=== PATIENT | male | born 1960 | race Caucasian/White ===

== ENCOUNTER 2022-03-20 11:30 | Emergency (ER) | payer OTHER, SELFPAY ==
--- NOTE | ~2022-03-20 | XR_ITS ---
EXAMINATION: XR chest 2V CLINICAL INFORMATION: Reason for Exam left chest pressure x 3 days COMPARISON: No prior chest x-ray available in our system for comparison at the time of this dictation. TECHNIQUE: XR chest 2V Lungs and Marcie: Both lungs are clear. Pleura: Normal. Costophrenic angles are sharp. No pneumothorax. Heart: The heart is normal in size. Mediastinum: Calcified left hilar lymph node unchanged chronic probably old gliomatous disease. Tiny calcified nodule right lower lobe.. Bones: Skeletal structures included are normal for patient's age. XR/XR chest 2V IMPRESSION: * No radiographic evidence of acute cardiopulmonary disease. 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
[2022-03-20 12:14] VITALS: BP 136/83; PULSE 79; RESP 16; TEMP 37.7; O2SAT 98; BMI 22.7
--- NOTE | 2022-03-20 12:15 | ECG_ITS ---
Test Reason : chest pressue Blood Pressure : / mmHG Vent. Rate : 072 BPM Atrial Rate : 072 BPM P-R Int : 130 ms QRS Dur : 092 ms QT Int : 372 ms P-R-T Axes : 078 074 072 degrees QTc Int : 407 ms Normal sinus rhythm Biatrial enlargement Left ventricular hypertrophy ( Sokolow-Brunner , Romhilt-Fabian ) Abnormal ECG When compared with ECG of 02-JAN-2018 12:07, No significant change was found Referred By: Aleyda Bates Electronically Signed By:MARIBEL CAMPBELL
--- NOTE | 2022-03-20 12:15 | ED.GENADULT ---
HPI - General Adult General Chief complaint: General Medical <ANALI Lopez Last Filed: 03/20/22 12:17> Stated complaint: dizzy chest pain headache <ANALI Lopez Last Filed: 03/20/22 12:17> Time Seen by Provider: 03/20/22 16:11 <ANALI Lopez Last Filed: 03/20/22 12:17> Source: patient <ANALI Stone Last Filed: 03/20/22 16:38> Mode of arrival: ambulatory <ANALI Stone Last Filed: 03/20/22 16:38> Limitations: no limitations <ANALI Stone Last Filed: 03/20/22 16:38> History of Present Illness HPI narrative: This is a 61-year-old male history of generalized fatigue/malaise, decreased PO intake, myalgias, chills, sweats, dizziness ( lightheadedness), dry cough, few episodes of diarrhea a day , intermittent left sided chest pain (now resolved) for the past 3 days. Denies sick contacts. Vaccinated against covid however not the flu. Denies shortness of breath, vision changes, headache. <ANALI Stone Last Filed: 03/20/22 16:38> Related Data Allergies/adverse reactions: Allergies Allergy/AdvReac Type Severity Reaction Status Date / Time No Known Allergies Allergy Unverified 02/23/21 13:56 <ANALI Lopez Last Filed: 03/20/22 12:17> Review of Systems Review of Systems: Constitutional : No Weight loss, No Fever, + Chills, + Fatigue, + Malaise ENT/Mouth : No sore throat, No Rhinorrhea Eyes: No Eye Pain, No Swelling, No Redness Cardiovascular : No Chest Pain, No SOB, No Dyspnea on Exertion, No Orthopnea, No Edema, No Palpitations Respiratory : + Cough, No Sputum, No Wheezing Gastrointestinal : No Nausea, No Vomiting, No Diarrhea, No Constipation, No abdominal Pain, No Hematochezia, No Melena Genitourinary : No Dysuria, No Urinary Frequency, No Hematuria, Musculoskeletal : No joint pain, + Myalgias, No Joint Swelling Skin : No Skin Lesions, No rash Neuro : No Weakness, No Numbness, + Dizziness, No Headache Psych : No Anxiety/Panic, No Depression All other systems reviewed and are negative <ANALI Stone - Last Filed: 03/20/22 16:38> Yes all other systems are reviewed and are negative <ANALI Stone - Last Filed: 03/20/22 16:38> [facility] Past Medical History Attestation statement: The following information was validated with the patient. <ANALI Stone - Last Filed: 03/20/22 16:38> Source: old records reviewed and nursing notes reviewed <ANALI Stone - Last Filed: 03/20/22 16:38> Social History Social History: Social History Advance Directives: No Advance Directives Information Provided: No <ANALI Lopez - Last Filed: 03/20/22 12:17> Physical Exam ED Vital Signs: Vital Signs - 24 hr 03/20/22 12:14 Temperature 99.9 F Pulse Rate 79 Respiratory Rate 16 Blood Pressure 136/83 Pulse Oximetry 98 Oxygen Delivery Method Room Air BMI result Body Mass Index 22.7 <ANALI Lopez - Last Filed: 03/20/22 12:17> Vital Signs - 24 hr 03/20/22 12:14 Temperature 99.9 F Pulse Rate 79 Respiratory Rate 16 Blood Pressure 136/83 Pulse Oximetry 98 Oxygen Delivery Method Room Air BMI result Body Mass Index 22.7 Vital signs stable. <ANALI Stone - Last Filed: 03/20/22 16:38> Appearance: Alert.? Oriented X3.? No acute distress.? Head: Normocephalic, atraumatic, no step-offs or deformities Eyes: Pupils equal, round and reactive to light.? ENT: Pharynx normal.? Neck: Normal inspection.? Neck supple.? No meningeal signs CVS: Normal heart rate and rhythm.? Pulses normal.? Respiratory: No respiratory distress.? Breath sounds normal.? Abdomen: Soft and nontender.? Skin: Skin warm and dry.? Normal skin color.? Normal skin turgor.? Extremities: No lower extremity edema.? No calf ttp. 5/5 strength to bilateral upper and lower extremities Neuro: Oriented X 3.? No motor deficit.? No sensory deficit. CN 2-12 intact . Normal [id number], steo-bo-ofuz, steady tandem gait. <ANALI Stone - Last Filed: 03/20/22 16:38> Course Course Course Narrative: RME-12:16 61yoM c PMHx of SD x 2 tyears ago went to [facility] and had a stent placed currently on only a baby aspirin presenting to the ER with multiple complaints which include generalized fatigue/malaise, chills, sweats, dizziness, cough, nausea/vomiting/diarrhea, chest pain left-sided for the past 3 days. Denies any other symptoms related to this. Plan: Patient is stable he can go back to the waiting room to be evaluated in the ED. EKG along with chest x-ray and labs ordered at this time. <ANALI Lopez - Last Filed: 03/20/22 12:17> Reevaluation(s) Reevaluation #1: CBC appears to be within normal limits. Chemistry with no acute findings requiring intervention. Troponin negative, EKG nonischemic, BNP within normal limits. Coags within normal limits. Chest x-ray with no acute findings. Patient noted to be positive for influenza likely contributing to patient's symptoms. Educated patient on diagnosis and treatment plan, answered all question, patient verbalizes understanding. At this time patient will be discharged home, advised to return with new or worsening symptoms. Educated on worrisome signs and symptoms and when to return. At this time I feel comfortable discharge home. <ANALI Stone - Last Filed: 03/20/22 16:38> Time: 16:34 <ANALI Stone - Last Filed: 03/20/22 16:38> Medical Decision Making Medical Decision Making [facility] Narrative: 1629 61-year-old male presents with flu-like symptoms x3 days. Physical exam benign. Vital signs stable. Likely viral in origin. I do not suspect intracranial hemorrhage, stroke, posterior stroke, bowel obstruction, acute abdomen. Plan at this time basic labs, chest x-ray, viral serology. <ANALI Stone Last Filed: 03/20/22 16:38> Differential Diagnosis Differential Diagnoses: The differential diagnosis associated with the presentation includes <ANALI Stone - Last Filed: 03/20/22 16:38> Most likely viral in origin. Unlikely intracranial hemorrhage, stroke, posterior stroke, bowel obstruction, acute abdomen. <ANALI Stone - Last Filed: 03/20/22 16:38> Admission/Observation Consideration of admission/observation: Escalation of care including admission/observation considered <ANALI Stone - Last Filed: 03/20/22 16:38> No need for hospital admission. <ANALI Stone - Last Filed: 03/20/22 16:38> Lab Data MDM Lab Attestation statement: I reviewed the patient's lab results. <ANALI Stone - Last Filed: 03/20/22 16:38> Result Diagrams: : 03/20/22 12:35 03/20/22 12:35 <ANALI Lopez - Last Filed: 03/20/22 12:17> Labs: Lab Results 03/20/22 03/20/22 03/20/22 Range/Units 12:35 12:35 12:35 WBC 9.0 (4.8-10.8) X10*3/uL RBC 5.00 (4.60-5.80) X10*6/uL Hgb 14.3 (14.0-18.0) g/dl Hct 43.1 (42.0-52.0) % MCV 86.2 (80.0-98.0) fL MCH 28.6 (27.0-33.0) pg MCHC 33.2 (31.0-36.0) g/dl RDW 13.3 (11.0-16.0) % Plt Count 212 (160-400) X10*3/uL MPV 8.9 L (9.4-12.4) fL Immature Gran % (Auto) 0.2 (0.0-0.4) % Neut % (Auto) 80.3 H (45-73) % Lymph % (Auto) 13.2 L (20-40) % [place] % (Auto) 5.9 (2-11) % Eos % (Auto) 0.1 (0-4) % Baso % (Auto) 0.3 (0-2) % Lymph # (Auto) 1.2 (1.2-4.9) X10*3/uL [place] # (Auto) 0.5 (0.1-1.2) X10*3/uL Eos # (Auto) 0.0 (0.0-0.4) X10*3/uL Baso # (Auto) 0.0 (0.0-0.2) X10*3/uL Abs Immat Gran (auto) 0.02 (0.00-0.03) X10*3/uL Absolute Neuts (auto) 7.2 (2.0-8.3) x10*3/uL Absolute Nucleated RBC 0.000 (0.0-0.012) X10*3/uL Nucleated RBC % (auto) 0.0 (0.0-0.2) /100WBC PT 13.4 H (10.0-13.1) SEC INR 1.2 H (0.9-1.1) Sodium 136 (135-145) mmol/L Potassium 4.0 (3.3-5.1) mmol/L Chloride 99 (96-108) mmol/L Carbon Dioxide 26 (22-29) mmol/L Anion Gap 15 (12-20) BUN 15 (9-16) mg/dL Creatinine 1.13 (0.5-1.4) mg/dL Estim Creat Clear Calc 63.5 Estimated GFR > 60 Random Glucose 119 H (60-115) mg/dL Calcium 9.5 (8.4-10.2) mg/dL Magnesium 2.0 (1.6-2.6) mg/dL Total Bilirubin 0.4 (0.0-1.0) mg/dL AST 28 (5-37) U/L ALT 22 (0-40) U/L Alkaline Phosphatase 99 (39-117) U/L Troponin I High Sens (<3.5-35.0) ng/L B-Natriuretic Peptide (<100) pg/mL Total Protein 8.0 (6.5-8.0) g/dL Albumin 4.9 (3.5-5.0) g/dL Influenza Type A (PCR) (Negative) Influenza Type B (PCR) (Negative) RSV RNA Qual (PCR) (Negative) SARS-CoV-2 RNA (RT-PCR) (Negative) 03/20/22 03/20/22 03/20/22 Range/Units 12:35 12:35 12:35 WBC (4.8-10.8) X10*3/uL RBC (4.60-5.80) X10*6/uL Hgb (14.0-18.0) g/dl Hct (42.0-52.0) % MCV (80.0-98.0) fL MCH (27.0-33.0) pg MCHC (31.0-36.0) g/dl RDW (11.0-16.0) % Plt Count (160-400) X10*3/uL MPV (9.4-12.4) fL Immature Gran % (Auto) (0.0-0.4) % Neut % (Auto) (45-73) % Lymph % (Auto) (20-40) % [place] % (Auto) (2-11) % Eos % (Auto) (0-4) % Baso % (Auto) (0-2) % Lymph # (Auto) (1.2-4.9) X10*3/uL [place] # (Auto) (0.1-1.2) X10*3/uL Eos # (Auto) (0.0-0.4) X10*3/uL Baso # (Auto) (0.0-0.2) X10*3/uL Abs Immat Gran (auto) (0.00-0.03) X10*3/uL Absolute Neuts (auto) (2.0-8.3) x10*3/uL Absolute Nucleated RBC (0.0-0.012) X10*3/uL Nucleated RBC % (auto) (0.0-0.2) /100WBC PT (10.0-13.1) SEC INR (0.9-1.1) Sodium (135-145) mmol/L Potassium (3.3-5.1) mmol/L Chloride (96-108) mmol/L Carbon Dioxide (22-29) mmol/L Anion Gap (12-20) BUN (9-16) mg/dL Creatinine (0.5-1.4) mg/dL Estim Creat Clear Calc Estimated GFR Random Glucose (60-115) mg/dL Calcium (8.4-10.2) mg/dL Magnesium (1.6-2.6) mg/dL Total Bilirubin (0.0-1.0) mg/dL AST (5-37) U/L ALT (0-40) U/L Alkaline Phosphatase (39-117) U/L Troponin I High Sens 6.8 (<3.5-35.0) ng/L B-Natriuretic Peptide < 10 (<100) pg/mL Total Protein (6.5-8.0) g/dL Albumin (3.5-5.0) g/dL Influenza Type A (PCR) POSITIVE A (Negative) Influenza Type B (PCR) NEGATIVE (Negative) RSV RNA Qual (PCR) NEGATIVE (Negative) SARS-CoV-2 RNA (RT-PCR) NEGATIVE (Negative) <ANALI Lopez - Last Filed: 03/20/22 12:17> Lab Results 03/20/22 03/20/22 03/20/22 Range/Units 12:35 12:35 12:35 WBC 9.0 (4.8-10.8) X10*3/uL RBC 5.00 (4.60-5.80) X10*6/uL Hgb 14.3 (14.0-18.0) g/dl Hct 43.1 (42.0-52.0) % MCV 86.2 (80.0-98.0) fL MCH 28.6 (27.0-33.0) pg MCHC 33.2 (31.0-36.0) g/dl RDW 13.3 (11.0-16.0) % Plt Count 212 (160-400) X10*3/uL MPV 8.9 L (9.4-12.4) fL Immature Gran % (Auto) 0.2 (0.0-0.4) % Neut % (Auto) 80.3 H (45-73) % Lymph % (Auto) 13.2 L (20-40) % [place] % (Auto) 5.9 (2-11) % Eos % (Auto) 0.1 (0-4) % Baso % (Auto) 0.3 (0-2) % Lymph # (Auto) 1.2 (1.2-4.9) X10*3/uL [place] # (Auto) 0.5 (0.1-1.2) X10*3/uL Eos # (Auto) 0.0 (0.0-0.4) X10*3/uL Baso # (Auto) 0.0 (0.0-0.2) X10*3/uL Abs Immat Gran (auto) 0.02 (0.00-0.03) X10*3/uL Absolute Neuts (auto) 7.2 (2.0-8.3) x10*3/uL Absolute Nucleated RBC 0.000 (0.0-0.012) X10*3/uL Nucleated RBC % (auto) 0.0 (0.0-0.2) /100WBC PT 13.4 H (10.0-13.1) SEC INR 1.2 H (0.9-1.1) Sodium 136 (135-145) mmol/L Potassium 4.0 (3.3-5.1) mmol/L Chloride 99 (96-108) mmol/L Carbon Dioxide 26 (22-29) mmol/L Anion Gap 15 (12-20) BUN 15 (9-16) mg/dL Creatinine 1.13 (0.5-1.4) mg/dL Estim Creat Clear Calc 63.5 Estimated GFR > 60 Random Glucose 119 H (60-115) mg/dL Calcium 9.5 (8.4-10.2) mg/dL Magnesium 2.0 (1.6-2.6) mg/dL Total Bilirubin 0.4 (0.0-1.0) mg/dL AST 28 (5-37) U/L ALT 22 (0-40) U/L Alkaline Phosphatase 99 (39-117) U/L Troponin I High Sens (<3.5-35.0) ng/L B-Natriuretic Peptide (<100) pg/mL Total Protein 8.0 (6.5-8.0) g/dL Albumin 4.9 (3.5-5.0) g/dL Influenza Type A (PCR) (Negative) Influenza Type B (PCR) (Negative) RSV RNA Qual (PCR) (Negative) SARS-CoV-2 RNA (RT-PCR) (Negative) 03/20/22 03/20/22 03/20/22 Range/Units 12:35 12:35 12:35 WBC (4.8-10.8) X10*3/uL RBC (4.60-5.80) X10*6/uL Hgb (14.0-18.0) g/dl Hct (42.0-52.0) % MCV (80.0-98.0) fL MCH (27.0-33.0) pg MCHC (31.0-36.0) g/dl RDW (11.0-16.0) % Plt Count (160-400) X10*3/uL MPV (9.4-12.4) fL Immature Gran % (Auto) (0.0-0.4) % Neut % (Auto) (45-73) % Lymph % (Auto) (20-40) % [place] % (Auto) (2-11) % Eos % (Auto) (0-4) % Baso % (Auto) (0-2) % Lymph # (Auto) (1.2-4.9) X10*3/uL [place] # (Auto) (0.1-1.2) X10*3/uL Eos # (Auto) (0.0-0.4) X10*3/uL Baso # (Auto) (0.0-0.2) X10*3/uL Abs Immat Gran (auto) (0.00-0.03) X10*3/uL Absolute Neuts (auto) (2.0-8.3) x10*3/uL Absolute Nucleated RBC (0.0-0.012) X10*3/uL Nucleated RBC % (auto) (0.0-0.2) /100WBC PT (10.0-13.1) SEC INR (0.9-1.1) Sodium (135-145) mmol/L Potassium (3.3-5.1) mmol/L Chloride (96-108) mmol/L Carbon Dioxide (22-29) mmol/L Anion Gap (12-20) BUN (9-16) mg/dL Creatinine (0.5-1.4) mg/dL Estim Creat Clear Calc Estimated GFR Random Glucose (60-115) mg/dL Calcium (8.4-10.2) mg/dL Magnesium (1.6-2.6) mg/dL Total Bilirubin (0.0-1.0) mg/dL AST (5-37) U/L ALT (0-40) U/L Alkaline Phosphatase (39-117) U/L Troponin I High Sens 6.8 (<3.5-35.0) ng/L B-Natriuretic Peptide < 10 (<100) pg/mL Total Protein (6.5-8.0) g/dL Albumin (3.5-5.0) g/dL Influenza Type A (PCR) POSITIVE A (Negative) Influenza Type B (PCR) NEGATIVE (Negative) RSV RNA Qual (PCR) NEGATIVE (Negative) SARS-CoV-2 RNA (RT-PCR) NEGATIVE (Negative) <ANALI Stone - Last Filed: 03/20/22 16:38> Independent Interpretation I performed an independent interpretation of an: Plain X-Ray (No acute findings.) <ANALI Stone Last Filed: 03/20/22 16:38> Radiology Impression Discussion of test interpretation with radiology: I have reviewed the radiologist's reading. <ANALI Stone Last Filed: 03/20/22 16:38> Radiologist Impression: XR/XR chest 2V IMPRESSION: ? *? No radiographic evidence of acute cardiopulmonary disease. ? *? 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 <ANALI Stone Last Filed: 03/20/22 16:38> Independent Historian Clinical information obtained from an independent historian. History obtained from or confirmed by: Other (Self) <ANALI Stone Last Filed: 03/20/22 16:38> External Record Review External record reviewed: Inpatient record and Prior outpatient labs <ANALI Stone Last Filed: 03/20/22 16:38> Tests considered The following testing was considered but not selected: X-ray, basic labs. No need for head CT. <ANALI Stone Last Filed: 03/20/22 16:38> Prescription Management I considered prescription management with: Other (Ibuprofen every 6 hours, Tylenol every 4 hours as needed.) <ANALI Stone - Last Filed: 03/20/22 16:38> Core Measures AMI core measures followed: Yes <ANALI Stone - Last Filed: 03/20/22 16:38> Measure exclusions: not indicated <ANALI Stone - Last Filed: 03/20/22 16:38> Discharge Plan Discharge Clinical Impression: Influenza A <ANALI Lopez - Last Filed: 03/20/22 12:17> Patient Disposition: Home, Self-Care <ANALI Lopez - Last Filed: 03/20/22 12:17> Instructions: Influenza (ED) <ANALI Lopez - Last Filed: 03/20/22 12:17> Additional Instructions: Take your medications as prescribed. If you were prescribed antibiotics today, it is important that you take your medication to their entirety, do not skip any doses, do not finish them early. Follow-up with your primary care provider this week. Return to the emergency department with new or worsening symptoms. Such as fevers, chills, chest pain, shortness of breath, nausea, vomiting, dizziness, headache, vision changes, lethargy In case of emergency call 911 XR/XR chest 2V IMPRESSION: ? *? No radiographic evidence of acute cardiopulmonary disease. ? *? 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 <ANALI Lopez - Last Filed: 03/20/22 12:17> Referrals: Manjeet Manuel MD [Primary Care Provider] - 2 days <ANALI Lopez - Last Filed: 03/20/22 12:17> Stand Alone Forms: Work/School Release <ANALI Lopez - Last Filed: 03/20/22 12:17>
[2022-03-20 12:40] LABS: MANUAL DIFF FLAG NO
[2022-03-20 12:42] LABS: Basophils Percent Auto 0.3 % (0-2); Eosinophils Percent Auto 0.1 % (0-4); Hematocrit 43.1 % (42.0-52.0); Hemoglobin 14.3 g/dl (14.0-18.0); Imm Gran Abs Auto 0.02 X10*3/uL (0.00-0.03); Imm Gran Pct Auto 0.2 % (0.0-0.4); Lymphocytes Absolute Auto 1.2 X10*3/uL (1.2-4.9); Lymphocytes Percent Auto 13.2 % (20-40); Mean Corpuscular HGB Conc 33.2 g/dl (31.0-36.0); Mean Corpuscular Hemoglobin 28.6 pg (27.0-33.0); Mean Corpuscular Volume 86.2 fL (80.0-98.0); Mean Platelet Volume 8.9 fL (9.4-12.4); Monocytes Absolute Auto 0.5 X10*3/uL (0.1-1.2); Monocytes Percent Auto 5.9 % (2-11); Neutrophils Absolute Auto 7.2 x10*3/uL (2.0-8.3); Neutrophils Percent Auto 80.3 % (45-73); Platelet Count 212 X10*3/uL (160-400); Red Cell Distribution Width 13.3 % (11.0-16.0)
[2022-03-20 12:47] LABS: INTERNATIONAL NORM RATIO 1.2 (0.9-1.1); Prothrombin Time 13.4 SEC (10.0-13.1)
[2022-03-20 13:02] LABS: Alanine Aminotransferase 22 U/L (0-40); Albumin Level 4.9 g/dL (3.5-5.0); Alkaline Phosphatase 99 U/L (39-117); Anion Gap 15 (12-20); Aspartate Amino Transferase 28 U/L (5-37); Bilirubin Total 0.4 mg/dL (0.0-1.0); Blood Urea Nitrogen 15 mg/dL (9-16); Calcium 9.5 mg/dL (8.4-10.2); Carbon Dioxide 26 mmol/L (22-29); Chloride 99 mmol/L (96-108); Creatinine Clr Calc Pharmacy 63.5; Estimated Glomerular Filt Rate > 60; Glucose Random 119 mg/dL (60-115); Sodium 136 mmol/L (135-145)
[2022-03-20 13:09] LABS: B Type Natriuretic Peptide < 10 pg/mL (<100); Troponin-I High Sensitivity 6.8 ng/L (<3.5-35.0)
[2022-03-20 13:26] LABS: Influenza A PCR POSITIVE (Negative); Influenza B PCR NEGATIVE (Negative); Resp Syncy Virus RNA Qual PCR NEGATIVE (Negative); SARS COV2 PCR INHOUSE NEGATIVE (Negative)
== END 2022-03-20 16:41 | disposition home or self-care (01) ==
PROVIDERS: Physician Assistant Medical; Emergency Provider Internal Medicine; PCP Internal Medicine
DX: J11.1 Influenza due to unidentified influenza virus with other respiratory manifestations (principal); Z20.822 Contact with and (suspected) exposure to COVID-19
CPT/HCPCS: 0241U; 36415; 71046; 80053; 83735; 83880; 84484; 85025; 85610; 93005; 99283

== ENCOUNTER 2022-10-03 11:16 | Outpatient (REF) | payer OTHER, SELFPAY ==
[2022-10-03 13:37] LABS: MANUAL DIFF FLAG NO
[2022-10-03 13:56] LABS: Basophils Absolute Auto 0.1 X10*3/uL (0.0-0.2); Basophils Percent Auto 0.8 % (0-2); Eosinophils Absolute Auto 0.1 X10*3/uL (0.0-0.4); Eosinophils Percent Auto 1.4 % (0-4); Hematocrit 38.4 % (42.0-52.0); Hemoglobin 12.3 g/dl (14.0-18.0); Imm Gran Abs Auto 0.02 X10*3/uL (0.00-0.03); Imm Gran Pct Auto 0.3 % (0.0-0.4); Lymphocytes Absolute Auto 2.2 X10*3/uL (1.2-4.9); Lymphocytes Percent Auto 33.8 % (20-40); Mean Corpuscular Hemoglobin 28.3 pg (27.0-33.0); Mean Corpuscular Volume 88.3 fL (80.0-98.0); Mean Platelet Volume 9.7 fL (9.4-12.4); Monocytes Absolute Auto 0.3 X10*3/uL (0.1-1.2); Monocytes Percent Auto 4.4 % (2-11); Neutrophils Absolute Auto 3.8 x10*3/uL (2.0-8.3); Neutrophils Percent Auto 59.3 % (45-73); Platelet Count 245 X10*3/uL (160-400); Red Blood Count 4.35 X10*6/uL (4.60-5.80); Red Cell Distribution Width 13.2 % (11.0-16.0); White Blood Count 6.4 X10*3/uL (4.8-10.8)
[2022-10-03 14:16] LABS: Estimated Average Glucose 111 mg/dL; Hemoglobin A1c % 5.5 %
[2022-10-03 18:13] LABS: Alanine Aminotransferase 14 U/L (0-40); Albumin Level 4.3 g/dL (3.5-5.0); Alkaline Phosphatase 90 U/L (39-117); Anion Gap 11 (12-20); Aspartate Amino Transferase 16 U/L (5-37); Bilirubin Direct 0.1 mg/dL (0.0-0.5); Bilirubin Total 0.3 mg/dL (0.0-1.0); Blood Urea Nitrogen 11 mg/dL (9-16); Calcium 9.8 mg/dL (8.4-10.2); Carbon Dioxide 27 mmol/L (22-29); Chloride 104 mmol/L (96-108); Cholesterol 222 mg/dL; Estimated Glomerular Filt Rate > 60; Glucose Random 81 mg/dL (60-115); HDL Cholesterol 41 mg/dL; LDL Cholesterol Calculated 144 mg/dl; Sodium 138 mmol/L (135-145); Total Protein 7.3 g/dL (6.5-8.0); Triglycerides 185 mg/dL
[2022-10-03 18:33] LABS: Folate 9.9 ng/mL (> or = 4.0); Vitamin B12 574 pg/mL (200-900)
[2022-10-04 05:02] LABS: ~HepC Num1 0.08 S/CO (0.00-0.79); ~Hepatitis C Antibody Nonreactive (Nonreactive)
[2022-10-04 05:11] LABS: HIV AB/AG Nonreactive (Nonreactive); HIV Num 1 0.05 S/CO (0.00-0.99)
[2022-10-05 18:44] LABS: Homocysteine 14.8 umol/L (<11.4)
[2022-10-08 16:53] LABS: Methylmalonic Acid 208 nmol/L (87-318)
== END 2022-10-03 11:17 | disposition home or self-care (01) ==
LOC: HO.HHCL 11:16
PROVIDERS: Visit Provider Internal Medicine
DX: Z11.4 Encounter for screening for human immunodeficiency virus [HIV] (principal); M54.50 Low back pain, unspecified; G89.29 Other chronic pain
CPT/HCPCS: 36415; 80048; 80061; 80076; 82607; 82746; 83036; 83090; 83921; 84443; 85025; 86803; 87389

== ENCOUNTER 2022-10-03 11:48 | Outpatient (REF) | payer OTHER, SELFPAY ==
--- NOTE | ~2022-10-03 | XR_ITS ---
EXAMINATION: XR LUMBOSACRAL SPINE CLINICAL INFORMATION: Chronic midline low back pain without sciatica COMPARISON: 09/30/2014 TECHNIQUE: Three views of the lumbosacral spine. FINDINGS: Mild dextroscoliosis of the lumbar spine. Scattered vascular calcifications. Advanced atherosclerotic aortoiliac calcifications. Degenerative changes in the bilateral sacroiliac joints. Facet arthritis in the lower lumbar spine. Progression of multilevel lumbar spondylosis with loss of disc space height most advanced at L5-S1. XR/XR lumbar spine 2-3V IMPRESSION: Progression of multilevel lumbar spondylosis with loss of disc space height most advanced at L5-S1. Additional imaging with CT scan or MRI should be considered for better visualization as these modalities are much more sensitive for detection of fracture or other underlying pathology.
== END 2022-10-03 11:49 | disposition home or self-care (01) ==
LOC: HO.HHCX 11:48
PROVIDERS: Visit Provider Internal Medicine
DX: M54.50 Low back pain, unspecified (principal); G89.29 Other chronic pain
CPT/HCPCS: 72100

== ENCOUNTER 2022-10-17 13:23 | Outpatient (REF) | payer OTHER, SELFPAY ==
[2022-10-17 17:06] LABS: Iron 118 mcg/dL (45-160); Percent Iron Saturation 36 % (15-50); Total Iron Binding Capacity 331 mcg/dL (228-428); Unsaturated Iron Binding 213 ug/dL
[2022-10-17 17:24] LABS: Ferritin 55 ng/mL (20-250)
== END 2022-10-17 13:24 | disposition home or self-care (01) ==
LOC: HO.HHCL 13:23
PROVIDERS: Visit Provider Internal Medicine
DX: D64.9 Anemia, unspecified (principal)
CPT/HCPCS: 36415; 82728; 83540

== ENCOUNTER 2023-03-20 14:48 | Outpatient (REF) | payer OTHER, SELFPAY ==
[2023-03-20 16:14] LABS: MANUAL DIFF FLAG NO
[2023-03-20 16:16] LABS: Basophils Percent Auto 0.4 % (0-2); Eosinophils Absolute Auto 0.1 X10*3/uL (0.0-0.4); Eosinophils Percent Auto 1.3 % (0-4); Hemoglobin 11.7 g/dl (14.0-18.0); Imm Gran Abs Auto 0.03 X10*3/uL (0.00-0.03); Imm Gran Pct Auto 0.3 % (0.0-0.4); Lymphocytes Absolute Auto 2.9 X10*3/uL (1.2-4.9); Lymphocytes Percent Auto 28.1 % (20-40); Mean Corpuscular HGB Conc 32.5 g/dl (31.0-36.0); Mean Corpuscular Hemoglobin 28.8 pg (27.0-33.0); Mean Corpuscular Volume 88.7 fL (80.0-98.0); Mean Platelet Volume 9.3 fL (9.4-12.4); Monocytes Absolute Auto 0.6 X10*3/uL (0.1-1.2); Monocytes Percent Auto 5.7 % (2-11); Neutrophils Absolute Auto 6.5 x10*3/uL (2.0-8.3); Neutrophils Percent Auto 64.2 % (45-73); Platelet Count 273 X10*3/uL (160-400); Red Blood Count 4.06 X10*6/uL (4.60-5.80); Red Cell Distribution Width 13.3 % (11.0-16.0); White Blood Count 10.1 X10*3/uL (4.8-10.8)
[2023-03-20 17:01] LABS: Folate 11.5 ng/mL (> or = 4.0); Vitamin B12 475 pg/mL (200-900)
== END 2023-03-20 14:49 | disposition home or self-care (01) ==
LOC: HO.HHCL 14:48
PROVIDERS: Visit Provider Internal Medicine
DX: D64.9 Anemia, unspecified (principal); E53.8 Deficiency of other specified B group vitamins
CPT/HCPCS: 36415; 82607; 82746; 85025

== ENCOUNTER 2023-05-25 10:23 | Outpatient (AMB) | payer OTHER, SELFPAY ==
--- NOTE | 2023-05-25 10:25 | A.OFFVIS_ITS ---
Intake Intake Visit Reasons: LDCT SD Allergies No Known Allergies Allergy (Unverified 02/23/21 13:56) HPI HPI Comments History of Present Illness Details Donal is a pleasant 62 year old male, current smoker with a 40 PYH. Patient has been smoking since age 22 for 40 years at 1 ppd. Denies marijuana use. Denies exposure to chemicals or substances like asbestos. Denies second hand smoke exposure. Denies known family history of lung cancer. Denies personal history of cancers. Denies chest CT in last year. Denies recent travel outside the [place]. Denies testing positive for COVID. Admits receiving COVID Vaccine. Denies fever, chills, chest pain, new cough, hemoptysis or unintentional weight loss. Lung Cancer Screening Questionnaire reviewed with patient by provider. Shared Decision Making Completed. Discussed in detail with patient, the risk versus benefit of LDCT screening. Patient in agreement of proceeding with scan. [facility] Social History (Updated 05/25/23 @ 11:02 by Janelle Pedersen NP) Patient Tobacco Use Status: Current everyday Tobacco user Tobacco use type: Cigarette Cigarette Packs Per Day: 1 Years Smoked: 40 Assessment & Plan Assessment & Plan (1) Nicotine dependence, cigarettes, uncomplicated: Code(s): F17.210 - Nicotine dependence, cigarettes, uncomplicated Plan Shared decision-making visit completed today in office. This patient meets criteria for LDCT for lung cancer screening purposes and is asymptomatic. Offered smoking cessation, will enter referral to nurse navigator. Patient has been scheduled for a low dose chest CT for screening purposes at [facility]. We discussed how the results will be obtained depending on CT findings. RADS 1 and RADS 2 will receive a letter with results and will follow up for annual LDCT. Patient informed they will be contacted at later date to schedule upcoming LDCT scan. RADS 3 and RADS 4 will receive a telephone call, or an office visit after reviewing case at our Lung Cancer Conference to determine when the next LDCT will be scheduled or further interventions that may be needed. Discussed importance of screening program and compliance with yearly LDCT scan as scheduled. Risks, benefits, and alternatives were discussed in detail and patient agrees to proceed. Risks discussed include but are not limited to: radiation exposure and possibility of additional intervention for benign disease. Benefits include detection of lung cancer at an early stage. A copy of today's visit and LDCT results will be sent to patient's PCP. Incidental findings on LDCT are PCP's responsibility. If there are incidental fi ndings, our office will ensure that PCP office is aware of these findings. All questions were answered and patient is in agreement of plan. Orders: Referrals Nurse Navigator Referral F17.210 - Nicotine dependence, cigarettes, uncomplicated Coding Level of Care Code Lung Cancer Screening [id number] Diagnoses Nicotine dependence, cigarettes, uncomplicated F17.210
== END 2023-05-25 11:28 | disposition home or self-care (01) ==
PROVIDERS: PCP Internal Medicine; Visit Provider Nurse Practitioner Family
DX: F17.210 Nicotine dependence, cigarettes, uncomplicated (principal)
CPT/HCPCS: G0296

== ENCOUNTER 2023-05-25 11:03 | Outpatient (REF) | payer OTHER, SELFPAY ==
--- NOTE | ~2023-05-25 | CT_ITS ---
EXAMINATION: CT CHEST SCREENING CLINICAL INFORMATION: Nicotine dependence. Current smoker. 2 packs per day with history of 45 pack years. COMPARISON: CT chest 03/30/2014. TECHNIQUE: Multidetector volumetric CT imaging of the chest is performed without contrast using low-dose technique. Additional 2D coronal and sagittal reformatted images and axial 3D maximum intensity projection (MIP) images are generated on the CT workstation. This CT examination was performed using dose optimization techniques as appropriate, variously including the following: *Automated exposure control *Adjustment of mA and/or kV according to patient size (this includes techniques or standardized protocols for targeted exams where dose is matched to indication/reason for exam; i.e. extremities or head) *Use of iterative reconstruction technique DLP: 48 mGy-cm FINDINGS: LUNGS: Biapical pleural-parenchymal scarring is present. There is a 4 mm right apical nodule which is new compared to prior (5:158). There is a new tiny 2 mm right upper lobe nodule (5:200). There is a 5 mm right middle lobe nodule which is unchanged when compared to 2015 (5:310 compare prior 4:337). Mild emphysematous changes are again seen. The lungs are otherwise clear with no evidence of inflammation or nodules. MEDIASTINUM: The mediastinum is normal. CORONARY ARTERY CALCIFICATION: Extensive. PLEURA: There is no pleural effusion. No pleural mass or thickening. AXILLA: No lymphadenopathy. UPPER ABDOMEN: Unremarkable. OSSEOUS STRUCTURES: Unremarkable. CT/CT lung screening IMPRESSION: Small pulmonary micronodules, the largest of which is 5 mm and stable. There is a new 4 mm nodule at the right apex compared to the study from 9 years ago. ASSESSMENT: Lung-RADS category 3: Probably Benign RECOMMENDATION: Short interval 6 month follow up low-dose CT chest.
== END 2023-05-25 11:04 | disposition home or self-care (01) ==
LOC: HO.CT 11:03
PROVIDERS: PCP Internal Medicine; Visit Provider Nurse Practitioner Family
DX: F17.210 Nicotine dependence, cigarettes, uncomplicated (principal)
CPT/HCPCS: 71271; G0296

== ENCOUNTER 2023-11-22 15:04 | Outpatient (REF) | payer OTHER, SELFPAY ==
--- NOTE | ~2023-11-22 | CT_ITS ---
EXAMINATION: CT LOW-DOSE SCREENING CHEST WITHOUT CONTRAST CLINICAL INFORMATION: Nicotine dependence, cigarettes, uncomplicated. The patient is a current smoker with a 60 pack-year history of smoking. COMPARISON: CT chest May 25, 2023: Small pulmonary micronodules, the largest of which is 5 mm and stable. There is a new 4 mm nodule at the right apex compared to the study from [address] chest 03/30/2014. TECHNIQUE: Multidetector volumetric CT imaging of the chest is performed on a Siemens SOMATOM Definition scanner without contrast using low dose technique. Additional 2D coronal and sagittal reformatted images and axial 3D maximum intensity projection (MIP) images are generated on the CT workstation. This CT examination was performed using dose optimization techniques as appropriate, variously including the following: *Automated exposure control. *Adjustment of mA and/or kV according to patient size (this includes techniques or standardized protocols for targeted exams where dose is matched to indication/reason for exam; i.e. extremities or head). *Use of iterative reconstruction technique. TOTAL EXAM DLP: 44 mGy-cm. CTDIvol: 1.24 mGy. FINDINGS: PULMONARY NODULES: The previously seen new right apical lung nodule is unchanged. By my measurements on both exams, this measures about 5.7 x 4.0 mm - mean 4.9 mm, currently (5:153), previously measuring 5.9 x 4.6 mm - mean 5.2 mm (5:158). It is certainly no larger and may be slightly smaller. Other smaller micronodules are stable including the largest which is a 4.3 mm right middle lobe nodule (5:311). LUNGS: Lungs bilaterally symmetrically expanded. Mild emphysema and diffuse bronchial thickening again seen without bronchiectasis. No effusion or pneumothorax. Central airways patent. MEDIASTINUM: A calcified AP window lymph node is again seen along with other smaller calcified nodes. No mediastinal, hilar or axillary adenopathy or free fluid collection. CORONARY ARTERY CALCIFICATION: Moderate. THYROID GLAND: Unremarkable to the extent seen. CARDIOVASCULAR STRUCTURES: Aortic and heart size normal. No pericardial effusion. CHEST WALL/AXILLA: Unremarkable. UPPER ABDOMEN: Included portions of the solid organs in the upper abdomen unremarkable on noncontrast imaging. OSSEOUS STRUCTURES: No suspicious focal findings. CT/CT lung screen follow up IMPRESSION: No evidence of malignancy. Previously seen new right upper lobe nodule has not increased in size. ASSESSMENT: 1. Lung-RADS Category 2: Benign appearance or behavior of nodules. N/A. 2. Lung-RADS Category S: Negative. There are no clinically significant or potentially clinically significant findings not related to the lungs requiring urgent additional evaluation. RECOMMENDATION: Continued routine annual low-dose CT lung screening in 1 year is recommended. An order for CT CHEST LOW DOSE CANCER SCREENING ([id number]) can be placed. Electronically signed by: Eris Corcoran MD 01/07/2024 07:27 PM EDT
== END 2023-11-22 15:05 | disposition home or self-care (01) ==
LOC: HO.CT 15:04
PROVIDERS: PCP Internal Medicine; Visit Provider Nurse Practitioner Family
DX: R91.8 Other nonspecific abnormal finding of lung field (principal); F17.210 Nicotine dependence, cigarettes, uncomplicated
CPT/HCPCS: 71250

== ENCOUNTER 2024-10-13 11:56 | Outpatient (REF) | payer OTHER, SELFPAY ==
--- OUTSIDE RECORDS SUMMARY | 2024-10-13 10:30 | XMS_ITS | Encounter Summary ---
Author Organization [employer] Address [address] [place] [address] Care Team Providers Care Assignment Officer Name Role Phone Tory Hill MD Primary Care Provide r Reason for Visit * Reason Comments sick onsite Encounter Details Date Type Department Care Team ([facility] st Contact Info) Description 10/13/2024 10:30 AM EDT Office Visit [facility] [address], [place] [phone] Regina Lo NP [address] [place], [place] [phone] Dizzy spells (Primary Dx) Social History Tobacco Use Types Packs/Day Years Used Date Smoking Tobacco: Every Day Cigarettes 0.5 0.5 Passive Smoke Exposure: Current Smokeless Tobacco: Former Comments:10-11 daily Alcohol Use Standard Drinks/Week Comments Never 0 (1 standard drink = 0.6 oz pur e alcohol) Depression Answer Date Recorded Patient Health Questionnaire-9 Score 0 03/20/2023 Patient Health Questionnaire-9 Score 0 03/20/2023 Last PHQ-9: Questionnaire Data Not on file 0 03/20/2023 Housing Stability Answer Date Recorded What is your housing situation today? I have alanis high 01/12/[address] you li ve. Do you have problems with any of the following? None of the above 01/12/2023 Food Insecurity Answer Date Recorded Within the past 12 months, y ou worried that your food would run out before you got money to buy more: Never True 01/12/2023 Within the past 12 months,th e food you bought just didn't last and you didn't have enough money to get more: Never True 10/ Transportation Answer Date Recorded In the past 12 months, has l ack of transportation kept you from medical appts, meetings, work or from getting things needed for daily living? No 01/12/2023 Utilities Answer Date Recorded In the past 12 months, has t he electric, gas, oil or water company threatened to shut off services in your home? No 01/12/2023 Depression Answer Date Recorded Patient Health Questionnaire-2 Score 0 03/20/2023 Sex and Gender Information Value Date Recorded Sex Assigned at Male 01/16/2022 10:15 AM EDT Legal Sex Male 10:15 AM EDT Gender Identity Male 01/16/2022 10:15 AM EDT Sexual Orientation Straight 01/16/2022 10 :15 AM EDT documented as of this encounter Last Filed Vital Signs Vital Sign Reading Time Taken Comments Blood Pressure 122/72 10/13/2024 10:46 AM EDT Pulse 57 10/13/2024 10:46 AM EDT Temperature 36.6 C (97.8 F) 10/13/2024 10:46 AM EDT Respiratory Rate 16 10/13/2024 10:46 AM EDT Oxygen Saturation 94% 10/13/2024 10:46 AM EDT Inhaled Oxygen Concentration - - Weight 59 kg (130 lb) 10/13/2024 10:46 AM EDT Height 160 cm (5' 3 ) 10/13/2024 10:46 AM EDT Body Mass Index 23.03 10/13/2024 10:46 AM EDT documented in this encounter Plan of Treatment Scheduled Orders Name Type Priority Associated Diagnoses Orde r Schedule Hemoglobin A1c Lab Routine Dizzy spells Expected: 10/13/2024 (Approximate), Expires: 10/13/2025 Basic Metabolic Panel Lab Routine Dizzy spells Expected: 10/13/2024 (Approximate), Expires: 10/13/2025 CBC auto differential Lab Routine Dizzy spells Expected: 10/13/2024 (Approximate), Expires: 10/13/2025 documented as of this encounter Visit Diagnoses Diagnosis Dizzy spells- Primary Dizziness and giddiness documented in this encounter Additional Health Concerns Assessment Noted Time PHQ-9 Depression Total Score: 0 03/20/19 24 1:37 PM EST documented as of this encounter Care Teams Assignment Officer Relationship Specialty Start Date End Date Tory Hill MD [address] [place] [address] PCP - General Family Medicine 09/05/19 documented as of this encounter
[2024-10-13 13:10] LABS: MANUAL DIFF FLAG NO
[2024-10-13 13:32] LABS: Hematocrit 40.4 % (42.0-52.0); Hemoglobin 13.1 g/dl (14.0-18.0); Imm Gran Abs Auto 0.11 X10*3/uL (0.00-0.03); Imm Gran Pct Auto 0.7 % (0.0-0.4); Lymphocytes Absolute Auto 2.0 X10*3/uL (1.2-4.9); Mean Corpuscular HGB Conc 32.4 g/dl (31.0-36.0); Mean Corpuscular Hemoglobin 28.3 pg (27.0-33.0); Mean Corpuscular Volume 87.3 fL (80.0-98.0); NRBC Abs Auto 0.000 X10*3/uL (0.0-0.012); NRBC Pct Auto 0.0 /100WBC (0.0-0.2); Platelet Count 273 X10*3/uL (160-400); Red Blood Count 4.63 X10*6/uL (4.60-5.80); White Blood Count 16.9 X10*3/uL (4.8-10.8)
[2024-10-13 13:33] LABS: Hemoglobin A1C 146.4119 umol/L; Total Hemoglobin (HGBA1C) 3502.2640 umol/L
[2024-10-13 13:41] LABS: Anion Gap 14 (12-20); Blood Urea Nitrogen 13 mg/dL (9-16); Calcium 10.0 mg/dL (8.4-10.2); Carbon Dioxide 28 mmol/L (22-29); Chloride 102 mmol/L (96-108); Estimated Glomerular Filt Rate > 60; Potassium 4.0 mmol/L (3.3-5.1); Sodium 140 mmol/L (135-145)
== END 2024-10-13 11:57 | disposition home or self-care (01) ==
LOC: HO.HHCL 11:56
PROVIDERS: PCP Internal Medicine; Visit Provider Nurse Practitioner
DX: R42 Dizziness and giddiness (principal)
CPT/HCPCS: 36415; 80048; 83036; 85025

== ENCOUNTER 2025-02-27 11:24 | Outpatient (REF) | payer OTHER, SELFPAY ==
--- NOTE | ~2025-02-27 | CT_ITS ---
EXAMINATION: CT LUNG SCREENING HISTORY: F17.210 - Nicotine dependence, cigarettes, uncomplicated TECHNIQUE: Low dose axial images were obtained from the sternal notch to upper abdomen without IV contrast per standard departmental protocol. Sagittal and coronal reformatted images were also obtained and reviewed. One or more of the following techniques was used for dose reduction: Automated exposure control, adjustment of the mA and/or kV according to patient size, use of iterative reconstruction technique. DLP: 44 mGy-cm COMPARISON: Comparison is made with the prior examination dated 11/22/2023. FINDINGS: Lung nodules: Again seen is a 6 x 4 mm nodule in the right upper lobe (series 5, image 46). A 2 mm nodule is seen in the right upper lobe (series 5, image 60) without change. There is a 5 mm right middle lobe nodule (series 5, image 93) without change. There is a 3 mm right lower lobe nodule (series 5, image 108) without change. No new nodules are identified. Emphysema: mild Coronary Calcification: severe Aortic Arch Calcification: moderate Potentially Significant Incidentals : none Additional Chest Findings: There is no pleural or pericardial effusion. No mediastinal or axillary lymphadenopathy is identified. Visualized upper abdomen: The visualized portions of the liver, spleen, and adrenals have an unremarkable unenhanced appearance. CT/CT lung screening IMPRESSION: No suspicious pulmonary nodules are identified. LUNG-RADS ASSESSMENT: Lung-RADS 2: Benign MANAGEMENT: Continue annual screening with LDCT in 12 months Category S: N/A Electronically signed by: Redd Sampson MD 02/27/2025 12:[address] [facility]
== END 2025-02-27 11:25 | disposition home or self-care (01) ==
LOC: HO.CT 11:24
PROVIDERS: PCP Internal Medicine; Visit Provider Physician Assistant Medical
DX: F17.210 Nicotine dependence, cigarettes, uncomplicated (principal)
CPT/HCPCS: 71271

== ENCOUNTER → 2025-02-27 11:28 | Outpatient (BNV) | payer OTHER, SELFPAY | PROVIDERS: PCP Internal Medicine; Visit Provider Radiology Diagnostic Radiology | DX: F17.210 Nicotine dependence, cigarettes, uncomplicated (principal) | CPT/HCPCS: 71271 ==